=== PATIENT | female | born 1960 ===

== ENCOUNTER → 2024-08-08 14:07 | Outpatient (REF) | payer MEDICARE, OTHER, SELFPAY ==
[2024-08-08 18:56] LABS: Urine Albumin Negative (Neg - Trace); Urine Bilirubin Negative (Negative); Urine Character Clear (Clear); Urine Color Yellow; Urine Glucose Negative (Negative); Urine Ketone Negative (Negative); Urine Leukocyte Negative (Negative); Urine Nitrite Positive (Negative); Urine Occult Blood Negative (Negative); Urine Urobilinogen Negative (Neg - 1+); Urine pH 6.5 (5.0-9.0)
[2024-08-08 19:07] LABS: Urine Squamous Cell 0-2 /LPF (Few)
[2024-08-08 19:08] LABS: Urine Bacteria Many (Negative); Urine Red Blood Cell 0-2 /HPF (0-2)
== END ==
LOC: CLAB 14:07
PROVIDERS: ATTENDING PHYSICIAN Specialist
DX: R31.0 Gross hematuria (principal)
CPT/HCPCS: 81003; 81015; 87077; 87086

== ENCOUNTER → 2024-09-12 12:10 | Outpatient (REF) | payer MEDICARE, OTHER, SELFPAY | LOC: CLAB 12:10 | PROVIDERS: ATTENDING PHYSICIAN Specialist; REFERRING PHYSICIAN Internal Medicine | DX: C67.0 Malignant neoplasm of trigone of bladder (principal) | CPT/HCPCS: 88112 ==